=== PATIENT | female | born 2000 | race Two or more races ===

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

== ENCOUNTER 2021-10-27 11:05 | Emergency (ER) | payer OTHER ==
[~2021-10-27] VITALS: Ht 165.1 cm; Wt 52.2 kg
--- NOTE | 2021-10-27 11:06 | NUR ---
BIB SELF C/O VAGINAL BLEEDING STARTED THIS MORNING, POSSIBLE 1 MONTH , SECOND PER PATIENT, BLEEDING DOES NOT REQUIRE A PAD PER PATIENT, AAOX3, BREATHING EVEN AND NON LABORED, CHANGED INTO A GOWN, AWAITING MD ORDERS
--- NOTE | 2021-10-27 11:21 | NUR ---
URINE SPECIMEN AND SENT TO LAB
--- NOTE | 2021-10-27 11:25 | NUR ---
US TECH AT BEDSIDE
--- NOTE | 2021-10-27 11:49 | NUR ---
DR DACOSTA AT BEDSIDE
[2021-10-27 12:24] LABS: BASOPHILS % (AUTO) 0.7 % (0.0-2.0); EOSINOPHILS % (AUTO) 1.3 % (0.0-6.0); HEMATOCRIT 39 % (33-45); HEMOGLOBIN 12.4 g/dL (11.5-14.8); LYMPHOCYTES # (AUTO) 2.3 K/uL (0.8-4.8); LYMPHOCYTES % (AUTO) 37.1 % (20.0-44.0); MEAN CORPUSCULAR HGB CONC 32 g/dl (31.0-36.0); MEAN CORPUSCULAR VOLUME 79 fL (82-100); MONOCYTES # (AUTO) 0.4 K/uL (0.1-1.30); MONOCYTES % (AUTO) 5.9 % (2.0-12.0); NEUTROPHILS # (AUTO) 3.4 K/uL (1.8-8.9); PLATELET COUNT (AUTO) 274 K/uL (150-450); RED BLOOD CELL COUNT(AUTO) 4.89 MIL/uL (4.0-5.2); WHITE BLOOD COUNT (AUTO) 6.2 K/uL (4.3-11.0)
[2021-10-27 12:34] LABS: BILIRUBIN,URINE NEGATIVE (NEGATIVE); COLOR,URINE YELLOW (YELLOW); LEUKOCYTE ESTERASE ,URINE NEGATIVE (NEGATIVE); NITRITE, URINE NEGATIVE (NEGATIVE); PH,URINE 5.5 (5.0-8.0); PROTEIN,URINE TRACE mg/dl (NEGATIVE); UGLUCOSE NEGATIVE (NEGATIVE); UROBILINOGEN,URINE 0.2 EU/dL (0.2)
[2021-10-27 12:42] LABS: BACTERIA,URINE Few /HPF (None Seen); RBC,URINE TOO NUMEROUS TO COUN /HPF (0-2); SQUAMOUS EPITHELIAL CELL,UR Few /HPF (None Seen); WBC,URINE 0-2 /HPF (0-3)
--- NOTE | 2021-10-27 13:43 | NUR ---
Patient not able to wait for her hcg results. MD spoke to patient. Patient discharged to home in stable condition. Written and verbal after care instructions given. Patient verbalizes understanding of instruction.
[2021-10-27 13:46] VITALS: BP 140/80
== END 2021-10-27 13:50 | disposition home or self-care (01) ==
LOC: ER 11:06
DX: O20.0 Threatened abortion (principal); Z3A.01 Less than 8 weeks gestation of pregnancy
CPT/HCPCS: 36415; 76805-TC; 81001; 84702-TC; 85025-TC; 86850-TC